=== PATIENT | female | born 1965 ===

== ENCOUNTER 2023-08-27 15:11 | Outpatient (REF) | payer MEDICAID, SELFPAY ==
[2023-08-27 16:34] LABS: Urine Cytology See Pathology rpt
== END 2023-08-27 15:12 | disposition home or self-care (01) ==
LOC: HO.LNP 15:11
PROVIDERS: PCP Physician Assistant; Visit Provider Nurse Practitioner Family
DX: R31.29 Other microscopic hematuria (principal)
CPT/HCPCS: 81003; 88112; 99212

== ENCOUNTER 2023-08-27 15:11 | Outpatient (AMB) | payer MEDICAID, SELFPAY ==
--- NOTE | 2023-08-27 15:16 | A.OFFVIS_ITS ---
Intake Visit Reasons: Hematuria Intake Note: New Patient presents today for initial visit to establish treatment for : Hematuria Urology Medications: none Allergies to Antibiotic: Blood Thinner: Aspirin Frothing Machine Operator Required: Yes Accompanied by: Unknown Allergies No Known Allergies Allergy (Verified 08/27/23 15:58) Medication List - Last Reconciled 08/27/23 by YRIS Lopez- aspirin 81 mg PO DAILY atorvastatin 10 mg PO BEDTIME buspirone 15 mg PO TID cholecalciferol (vitamin D3) 50 mcg PO DAILY citalopram 20 mg PO QAM diclofenac sodium 1% grams topical BID PRN duloxetine 60 mg PO BID glipizide-metformin 2.5-500 mg 1 tab PO DAILY lidocaine 5% patches topical losartan 25 mg PO BEDTIME melatonin 3 mg PO BEDTIME meloxicam 15 mg PO DAILY PRN metoprolol succinate ER 50 mg PO DAILY omeprazole 20 mg PO DAILY PRN orphenadrine citrate ER 100 mg PO BEDTIME PRN zolpidem 10 mg PO BEDTIME HPI Comments Details: Elsie is a pleasant 58-year-old Cymraes-speaking female patient of Dr. Quevedo who is accompanied by her significant other at [facility] office visit. She has a past medical history of dyspepsia, fibromyalgia, right lumbar radiculopathy, obesity, hypertension, hyperlipidemia, and type 2 diabetes. She presents to the office today as a new patient for microscopic hematuria. In discussion with the patient today she reports having previously followed up with [facility] many years ago for this exact issue at which time she underwent in office cystoscopy that noted no abnormalities per patient. However, she reports having followed up with her PCP who recommended urology referral for further assessment evaluation. When asked she denies any previous history of nicotine dependence and or workplace chemical exposure. She currently denies any bothersome urinary issues. She denies urinary urgency, urinary frequency, incontinence, nocturia, hematuria, dysuria, foul smelling urine, changes to urinary stream, flank pain, fever, and or chills. She is happy with her current voiding parameters. In office urinalysis results reviewed with the patient today 2+ microscopic hematuria noted. Discussed at length potential causes of microscopic hematuria. Discussed further workup versus surveillance monitoring. Risks and benefits of these interventions were discussed at length. All quest ions were answered. She otherwise offers no other issues or concerns at this time. [facility] Medical History (Updated 08/27/23 @ 15:58 by KYLEIGH Lopez) Encounter for screening Dyspepsia Fibromyalgia Right lumbar radiculopathy Microalbuminuria Obesity, unspecified Essential (primary) hypertension Mixed hyperlipidemia Type 2 diabetes mellitus without complications Review of Systems Const Reports no additional complaints Eyes Reports no additional complaints ENT Reports no additional complaints Card Reports as per HPI Resp Reports no additional complaints GI Reports as per HPI Reports as per HPI Musc Reports as per HPI Neuro Reports no additional complaints Psych Reports no additional complaints Endo Reports as per HPI Alexis/Lymph Reports no additional complaints Aller/Immun Reports no additional complaints Physical Exam Const General: cooperative, healthy appearing, comfortable, no acute distress, well developed, alert and awake Orientation/consciousness: patient oriented x3 Limitations: no limitations HEENT Head: Yes normal to inspection, Yes normocephalic and Yes atraumatic Ears: hearing grossly normal bilaterally Eyes General: appearance normal, both eyes and all related structures Neck Neck: Yes normal visual inspection and Yes trachea midline Chest Chest palpation & inspection: normal inspection of the chest Resp Effort & Inspection: normal respiratory effort and able to speak in complete sentences Cardio Rate: regular rate GI Inspection: Yes normal to inspection General: Yes no CVA tenderness Back/Spine/Pelvis Back: no CVA tenderness Skin General skin exam: no rashes or lesions noted Neuro General: patient oriented x3 Extrem General: Yes normal to inspection Psych Appearance: grossly normal and well kempt Mental Status: mental status grossly normal Speech and movement: Normal speech and movement present and Clear speech present Affect: normal affect Attitude: cooperative Thought process: Normal thought process present Thought content: Normal thought content present Insight: Fair insight present (Psych) Judgement: Fair judgement present (Psych) Results AMB Urinalysis, Automated UA Leukoctes 15 Lorraine/uL Last Edit by Tasha Elias on 08/27/23 15:52 UA Nitrite Negative Last Edit by FletcherArcadia Powerlamont Elias on 08/27/23 15:52 UA Urobilinogen 0.2 mg/dL Last Edit by FletcherArcadia Powerlam[employer] Elias on 08/27/23 15:52 UA Protein 30 mg/dL Last Edit by FletcherArcadia [employer] Elias on 08/27/23 15:52 UA pH 5.5 Last Edit by FletcherArcadia Powerlamont Elias on 08/27/23 15:52 UA Blood 80 Ildefonso/uL Last Edit by Tasha Lunaviry on 08/27/23 15:52 UA Specific [place] 1.015 Last Edit by Fletcherjohnlamont Lunaviry on 08/27/23 15:52 UA Ketone Negative Last Edit by Fletcherjohnlamont Lunaviry on 08/27/23 15:52 UA Bilirubin 0 mg/dL Last Edit by Fletcherjohnlamont Lunaviry on 08/27/23 15:52 UA Glucose 0 mg/dL Last Edit by Fletchernayeli Cherylviry on 08/27/23 15:52 Results Reviewed Results Reviewed: Laboratory Last Values Urine pH (Auto) 5.5 08/27/23 15:44 Specific [place] (Auto) 1.015 08/27/23 15:44 Urine Protein (Auto) 30 mg/dL 08/27/23 15:44 Glucose (UA)(Auto) 0 mg/dL 08/27/23 15:44 Urine Ketones (Auto) Negative 08/27/23 15:44 Urine Blood (Auto) 80 Ildefonso/uL 08/27/23 15:44 Urine Nitrite (Auto) Negative 08/27/23 15:44 Urine Bilirubin (Auto) 0 mg/dL 08/27/23 15:44 Urine Urobilinogen (Auto) 0.2 mg/dL 08/27/23 15:44 Leukocyte Esterase (Auto) 15 Lorraine/uL 08/27/23 15:44 Assessment & Plan Assessment & Plan (1) Microscopic hematuria: Code(s): R31.29 - Other microscopic hematuria Category: Medical Plan In office urinalysis results reviewed with the patient today; as above; will send for urine cytology. Discussed at length potential causes of microscopic hematuria; this was discussed at length Discussed surveillance monitoring verses further workup. Will obtain retroperitoneal ultrasound for further assessment evaluation. Discussed bladder triggers/irritants. Follow-up in office cystoscopy with imaging to be completed prior; or sooner with any issues, concerns, and or questions. Orders: Orders Urine Cytology 08/27/23 Z13.9 - Encounter for screening, unspecified AMB Urinalysis Automated 08/27/23 Z13.9 - Encounter for screening, unspecified US retroperitoneal comp 08/27/23 R31.29 - Other microscopic hematuria Patient Instructions: The patient had an opportunity to ask questions regarding the treatment plan. All questions were answered. Physical exam, labs, and imaging were discussed and reviewed in detail. As well as risks, benefits, and discussion of treatment choices. No major barriers to understanding were identified. The patient expressed understanding and agreement with the above treatment plan. The patient was made aware they should contact our office by phone for worsening of their current condition, the appearance of new symptoms, or with any questions or concerns. Compliance is encouraged with any medications and follow up testing that is ordered. It is a privilege to be allowed the opportunity to participate in? your urological care.? Again, if you have any questions or concerns If you have any questions or concerns please do not hesitate to contact me. The office is [phone]. This note is constructed using voice recognition software. While every effort has been made to ensure accuracy shaving machine operator errors may have been included. Yours sincerely, KYLEIGH Lopez Coding Level of Care Code New Pt Level 3 (53112) Diagnoses Microscopic hematuria R31.29
== END 2023-08-27 16:07 | disposition home or self-care (01) ==
PROVIDERS: PCP Physician Assistant; Visit Provider Nurse Practitioner Family
DX: Z13.9 Encounter for screening, unspecified (principal); R31.29 Other microscopic hematuria
CPT/HCPCS: 99203

== ENCOUNTER 2023-09-27 15:14 | Outpatient (REF) | payer MEDICAID, SELFPAY ==
--- NOTE | ~2023-09-27 | US_ITS ---
EXAMINATION: US RETROPERITONEAL COMPLETE (RENAL) CLINICAL INFORMATION: Other microscopic hematuria. COMPARISON: Ultrasound abdomen 08/06/2020. TECHNIQUE: Real-time imaging of the kidneys and bladder. Limited visualization due to bowel gas. FINDINGS: RIGHT KIDNEY: 10.7 x 4.0 x 5.1 cm (SAG x AP x TRV). 1.4 cm lower pole cyst with benign features. There is no indication for follow-up imaging. Additional smaller cysts are also seen with benign features. Limited visualization. No hydronephrosis. Renal cortical thickness is normal. 0.5 cm cluster of calcifications in the right renal lateral [id number] pole cortex. LEFT KIDNEY: 10.5 x 4.2 x 3.9 cm (SAG x AP x TRV). 0.7 cm lateral mid pole cyst with benign features. There is no indication for additional imaging. Additional smaller cysts with benign features. Renal cortical thickness is normal. Limited visualization. No hydronephrosis. Lower pole left 0.3 cm nonobstructive calculus. BLADDER: Well-distended. Bilateral ureteral jets are demonstrated. Prevoid bladder volume is 194.0 mL. Postvoid bladder volume is 5.1 mL. US/US retroperitoneal comp IMPRESSION: 1. Lower pole left 0.3 cm nonobstructive calculus. No hydronephrosis. 2. A 0.5 cm cluster of calcifications in the right renal lateral mid to upper pole cortex. No hydronephrosis. 3. Limited visualization. CT scan could be considered for further evaluation for this patient with hematuria.
== END 2023-09-27 15:15 | disposition home or self-care (01) ==
LOC: HO.US 15:14
PROVIDERS: PCP Physician Assistant; Visit Provider Nurse Practitioner Family
DX: R31.29 Other microscopic hematuria (principal)
CPT/HCPCS: 76770

== ENCOUNTER 2023-10-11 14:29 | Outpatient (AMB) | payer MEDICAID, SELFPAY ==
--- NOTE | 2023-10-11 15:09 | MHC.OFFVIS ---
Intake Visit Reasons: cysto/US Allergies No Known Allergies Allergy (Verified 08/27/23 15:58) HPI Comments Details: 10/11/23--here for cysto. Cystoscopy findings: no suspicious bladder lesions visualized Renal US 09/2023--. Lower pole left 0.3 cm nonobstructive calculus. No hydronephrosis. 0.5 cm cluster of calcifications in the right renal lateral mid to upper pole cortex. No hydronephrosis. FU 3 months with [facility], check UA and reevaluate UTI symptoms. Cont to monitor kidney stones. 08/27/23--Elsie is a pleasant 58-year-old Syriac-speaking female patient of Dr. Quevedo who is accompanied by her significant other at [facility] office visit. She has a past medical history of dyspepsia, fibromyalgia, right lumbar radiculopathy, obesity, hypertension, hyperlipidemia, and type 2 diabetes. She presents to the office today as a new patient for microscopic hematuria. In discussion with the patient today she reports having previously followed up with [facility] many years ago for this exact issue at which time she underwent in office cystoscopy that noted no abnormalities per patient. However, she reports having followed up with her PCP who recommended urology referral for further assessment evaluation. When asked she denies any previous history of nicotine dependence and or workplace chemical exposure. She currently denies any bothersome urinary issues. She denies urinary urgency, urinary frequency, incontinence, nocturia, hematuria, dysuria, foul smelling urine, changes to urinary stream, flank pain, fever, and or chills. She is happy with her current voiding parameters. In office urinalysis results reviewed with the patient today 2+ microscopic hematuria noted. Discussed at length potential causes of microscopic hematuria. Discussed further workup versus surveillance monitoring. Risks and benefits of these interventions were discussed at length. All questions were answered. She otherwise offers no other issues or concerns at this time. [facility] Medical History (Updated 11/29/23 @ 07:42 by Zac Krause MD) Encounter for screening Dyspepsia Fibromyalgia Right lumbar radiculopathy Microalbuminuria Obesity, unspecified Essential (primary) hypertension Mixed hyperlipidemia Type 2 diabetes mellitus without complications Office Procedures Cystoscopy Consent Discussed risk and benefit or proposed procedure with the patient. Information consent for procedure given to the patient. Discussed technical aspects, risks, benefits and alternatives in full. Addressed all of the patient's questions and concerns regarding the procedure. The patient demonstrated knowledge and understanding. They wish to proceed with this procedure. Preparation The patient was prepped in the usual manner. A patternmaker bench was present and in the room. Genitalia was prepped with betadine solution in a sterile manner. Lidocaine Jelly 2% was placed into the urethra and 16Fr flexible Olympus cystoscope was inserted into the meatus after adequate lubrication. Procedure Time out per protocol performed. Bladder Inspection Bladder Inspection: The bladder was inspected in its entirety with utilization retroflexion displaying: Tumor(s): no suspicious bladder lesions visualized Trabeculation: Mild Mucosal Erthema: Mild Orifices: normal shape and position Urethra: normal Cystoscopy findings: no suspicious bladder lesions visualized [id number] DISPOSABLE SCOPE URO-G FLEXIBLE SCOPE Procedure code (CPT) selection complete Office Meds lidocaine HCl 2 % mucosal jelly in applicator Performing Provider: Zac Krause MD Performing Location: [facility] [place] [facility] Administered by: Jason Tao LPN on 10/11/23 15:09 Dose Route Admin Location Dispensed Lot Number Expiration Date NDC Gravity Prospecting Observer 10 mL intra-urethral 10 mL naproxen 500 mg tablet Performing Provider: Zac Krause MD Performing Location: [facility] [place] [facility] Administered by: Jason Tao LPN on 10/11/23 15:09 Dose Route Admin Location Dispensed Lot Number Expiration Date NDC Gravity [employer] Observer 500 mg PO 1 tab ciprofloxacin HCl 500 mg tablet Performing Provider: Zac Krause MD Performing Location: [facility] [place] [facility] Administered by: Jason Tao LPN on 10/11/23 15:09 Dose Route Admin Location Dispensed Lot Number Expiration Date NDC [employer] Observer 500 mg PO 1 tab Results AMB Urinalysis, Automated UA Leukoctes 0 Lorraine/uL Last Edit by Jason Tao LPN on 10/11/23 15:10 UA Nitrite Negative Last Edit by Jason Tao LPN on 10/11/23 15:10 UA Urobilinogen 0.2 mg/dL Last Edit by Jason Tao LPN on 10/11/23 15:10 UA Protein 30 mg/dL Last Edit by Jason Tao LPN on 10/11/23 15:10 UA pH 5.0 Last Edit by Jason Tao LPN on 10/11/23 15:10 UA Blood 80 Ildefonso/uL Last Edit by Jason Tao LPN on 10/11/23 15:10 UA Specific [place] 1.025 Last Edit by Jason Tao LPN on 10/11/23 15:10 UA Ketone Positive Last Edit by Jason Tao LPN on 10/11/23 15:10 UA Bilirubin 1 mg/dL Last Edit by Jason Tao LPN on 10/11/23 15:10 UA Glucose 0 mg/dL Last Edit by Jason Tao LPN on 10/11/23 15:10 Results Reviewed Results Reviewed: Laboratory Last Values Urine pH (Auto) 5.0 10/11/23 15:08 Specific [place] (Auto) 1.025 10/11/23 15:08 Urine Protein (Auto) 30 mg/dL 10/11/23 15:08 Glucose (UA)(Auto) 0 mg/dL 10/11/23 15:08 Urine Ketones (Auto) Positive 10/11/23 15:08 Urine Blood (Auto) 80 Ildefonso/uL 10/11/23 15:08 Urine Nitrite (Auto) Negative 10/11/23 15:08 Urine Bilirubin (Auto) 1 mg/dL 10/11/23 15:08 Urine Urobilinogen (Auto) 0.2 mg/dL 10/11/23 15:08 Leukocyte Esterase (Auto) 0 Lorraine/uL 10/11/23 15:08 Date of Service: 09/27/23 EXAMINATION: US RETROPERITONEAL COMPLETE (RENAL) CLINICAL INFORMATION: Other microscopic hematuria. COMPARISON: Ultrasound abdomen 08/06/2020. TECHNIQUE: Real-time imaging of the kidneys and bladder. Limited visualization due to bowel gas. FINDINGS: RIGHT KIDNEY: 10.7 x 4.0 x 5.1 cm (SAG x AP x TRV). 1.4 cm lower pole cyst with benign features. There is no indication for follow-up imaging. Additional smaller cysts are also seen with benign features. Limited visualization. No hydronephrosis. Renal cortical thickness is normal. 0.5 cm cluster of calcifications in the right renal lateral [id number]-mbtwh pole cortex. LEFT KIDNEY: 10.5 x 4.2 x 3.9 cm (SAG x AP x TRV). 0.7 cm lateral mid pole cyst with benign features. There is no indication for additional imaging. Additional smaller cysts with benign features. Renal cortical thickness is normal. Limited visualization. No hydronephrosis. Lower pole left 0.3 cm nonobstructive calculus. BLADDER: Well-distended. Bilateral ureteral jets are demonstrated. Prevoid bladder volume is 194.0 mL. Postvoid bladder volume is 5.1 mL. IMPRESSION: 1. Lower pole left 0.3 cm nonobstructive calculus. No hydronephrosis. 2. A 0.5 cm cluster of calcifications in the right renal lateral mid to upper pole cortex. No hydronephrosis. 3. Limited visualization. CT scan could be considered for further evaluation for this patient with hematuria. Collected: 08/27/23 Location: [facility] Received: 08/31/23 Diagnosis Urine: Negative for high-grade urothelial carcinoma. COMMENT: Examination of a monolayer preparation slide shows many benign squamous cells, occasional benign urothelial cells, occasional inflammatory cells, and few red blood cells. Clinical History Encounter for screening Material Received Urine Gross Description Received are 30 cc of cloudy yellow fluid from which a ThinPrep slide is prepared. Assessment & Plan Assessment & Plan (1) Microscopic hematuria: Code(s): R31.29 - Other microscopic hematuria Category: Medical (2) Bilateral kidney stones: Code(s): N20.0 - Calculus of kidney Category: Medical (3) UTI symptoms: Code(s): R39.9 - Unspecified symptoms and signs involving the genitourinary system Category: Medical Plan FU 3 months with [facility], check UA and reevaluate UTI symptoms. Cont to monitor kidney stones. Orders: Orders AMB Urinalysis Automated 10/11/23 R31.29 - Other microscopic hematuria AMB Cystoscopy 10/11/23 R31.29 - Other microscopic hematuria Coding Level of Care Code Procedure Only Diagnoses Microscopic hematuria R31.29 Bilateral kidney stones N20.0 UTI symptoms R39.9 CPT Codes Cystoscopy - CPT: [id number] ([id number])
== END 2023-10-11 15:30 | disposition home or self-care (01) ==
PROVIDERS: PCP Physician Assistant; Visit Provider Urology
DX: R31.29 Other microscopic hematuria (principal)
CPT/HCPCS: 52000

== ENCOUNTER → 2023-10-11 14:29 | Outpatient (BNVA) | payer MEDICAID, SELFPAY | PROVIDERS: PCP Physician Assistant; Visit Provider Urology | DX: R31.29 Other microscopic hematuria (principal); R39.9 Unspecified symptoms and signs involving the genitourinary system; N20.0 Calculus of kidney | CPT/HCPCS: 52000; 81003 ==